=== PATIENT | male | born 1955 | race Two or more races ===

== ENCOUNTER 2018-02-12 20:24 | Inpatient (IN) | payer OTHER ==
[~2018-02-12] VITALS: Ht 170.2 cm; Wt 83.9 kg
[2018-02-13 00:46] VITALS: BP 167/87
[2018-02-13] MEDS ORDERED: Z GUARD REMEDY PASTE 57 GM TUBE TOP PRN (01:00)
[2018-02-13] MEDS ORDERED: AMLO10TA2 PO (01:09)
[2018-02-13] MEDS ORDERED: ASPI-612 PO (01:42)
[2018-02-13] MEDS ORDERED: BENZ1LOZ58 MM (01:42)
[2018-02-13] MEDS ORDERED: HYDR-4076 PO (01:42)
[2018-02-13] MEDS ORDERED: DOCU-141 PO (01:42)
[2018-02-13] MEDS ORDERED: PANT40TA2 PO (01:42)
[2018-02-13] MEDS ORDERED: MAGN400O6 PO (01:42)
[2018-02-13] MEDS ORDERED: ACET-2154 PO (01:42)
[2018-02-13] MEDS ORDERED: MAG355OR18 PO (01:42)
[2018-02-13] MEDS ORDERED: SENN-18 PO (01:42)
[2018-02-13] MEDS ORDERED: CLON0.1T PO (01:42)
[2018-02-13] MEDS ORDERED: TAMS-3 PO (01:42)
[2018-02-13] MEDS ORDERED: HYDR-3980 PO (01:42)
[2018-02-13] MEDS ORDERED: hydrALAZINE HCL 25 MG TABLET PO SCH (02:00)
[2018-02-13] MEDS ORDERED: CLONIDINE HCL 0.1 MG TABLET PO SCH (02:00)
[2018-02-13] MEDS ORDERED: SENNOSIDES 1 TABLET PO SCH (02:00)
[2018-02-13] MEDS ORDERED: MAGNESIUM HYDROXIDE 30 ML LIQUID UDC PO PRN (02:00)
[2018-02-13] MEDS ORDERED: ACETAMINOPHEN 325 MG TABLET PO SCH (02:00)
[2018-02-13] MEDS ORDERED: MAG HYDROX/AL HYDROX/SIMETH 30 ML LIQUID UDC PO PRN (02:00)
--- NOTE | 2018-02-13 04:57 | NUR ---
admitted from [facility] a 62 year old male with admitting diagnoses o S/P left total knee arthroplasty. left knee dressing clean dry and intact with suman in placed. No evidence of swelling or drainage from the site. AAOx4 CLINE's Lungs CTA. Denies any pain at this time. Voiding well. Meds reconcile and RECLAMATION SUPERVISOR Chris aware. MRSA nares swab sent to lab. Kept comfortable. Hx of HTN, GERD, CAD, and Osteoarthrits. Fall precautions maintained. Siderails up for safety. VS taken and recorded.BP 169/87 HR 94 Resp 18 Temp 98.1 97% pulse ox. Skin intact. Left knee has immobilizer on. Will monitor patient.
[2018-02-13] MEDS: HYDROCODONE/APAP 10-325 MG TABLET PO PRN ×4 (05:36→20:55)
--- NOTE | 2018-02-13 05:41 | NUR ---
slept well most of the shift. aaox4 BP 189/96 HR 100. complained of pain left knee 04/11 Hydralazine 25 mg po given and Penelope 10/325 mg 1 tab given for pain. Will monitor patient. voiding well. needs attended. kept comfortable.
--- NOTE | 2018-02-13 06:50 | NUR ---
latest BP 149/85 HR 96 No further complaints noted.
--- NOTE | 2018-02-13 07:08 | NUR ---
Nurse notes: patient received awake, alert and oriented x 4, able to make needs known. All needs were attended and anticipated. call light within reach, assessed for pain, instructed about hourly rounding and safety precautions to prevent any falls. Call light and telephone within reach. Will continue to monitor
[2018-02-13 08:00] VITALS: BP 146/83
[2018-02-13] MEDS: AMLODIPINE 10 MG TABLET PO SCH (08:55)
[2018-02-13] MEDS: TAMSULOSIN HCL 0.4 MG CAP.SR.24H PO SCH (08:56)
[2018-02-13] MEDS: DOCUSATE SODIUM 100 MG CAPSULE PO SCH ×2 (08:56→17:07)
[2018-02-13] MEDS: ASPIRIN 325 MG TABLET PO SCH ×2 (08:56→17:07)
--- NOTE | 2018-02-13 18:34 | NUR ---
End of shift report: patient alert and oriented x 4 able to make needs known remained stable throughout the shift with no acute changes noted. no SOB or distress, assessed and reassessed for pain. Medicated with pain medication as ordered PRN. All due medications were given tolerated well. at the bedside. Hourly rounding done, call light and telephone within reach at all times, bed alarm and bed brake son for safety. Will endorse accordingly to incoming shift for continuity of care.
[2018-02-13 19:21] VITALS: BP 132/84
[2018-02-13] MEDS: PANTOPRAZOLE SODIUM 40 MG TABLET.DR PO SCH (20:51)
--- NOTE | 2018-02-14 04:21 | NUR ---
The patient received lying on bed comfortably. Awake and alert x3. Able to make needs known. Ambulate with walker, one person assist. No acute distress, no SOB. His family was at bedside. Med given as ordered. Pain assessed and pain medication given. Pain reassessment was done. Call light and personal belonging within reach. Bed alarm and bed brakes on for safety precaution. Continue to monitor.
[2018-02-14] MEDS: HYDROCODONE/APAP 10-325 MG TABLET PO PRN ×5 (05:18→22:13)
[2018-02-14 06:41] VITALS: BP 144/87
--- NOTE | 2018-02-14 07:06 | NUR ---
patient alert and oriented x3. No acute distress, no SOB. No change in LOC or mentation. Remained stable throughout the shift. Med given as ordered. Pain assessed and reassessed after pain medication. Call light within reach. Bed alarm and brakes on for safety precaution. Will endorse accordingly to incoming shift for continuity of care.
[2018-02-14 07:27] LABS: CREATININE 1.2 mg/dL (0.6-1.3); POTASSIUM 3.6 mmol/L (3.5-5.1)
[2018-02-14 07:40] LABS: BASOPHILS % (AUTO) 0.5 % (0.0-2.0); EOSINOPHILS # (AUTO) 0.4 K/uL (0.0-0.7); EOSINOPHILS % (AUTO) 4.6 % (0.0-7.0); HEMATOCRIT 32.8 % (36.7-47.1); HEMOGLOBIN 11.5 g/dL (12.5-16.3); LYMPHOCYTES # (AUTO) 1.2 K/uL (20.0-40.0); LYMPHOCYTES % (AUTO) 15.2 % (20.5-51.5); MEAN CORPUSCULAR HEMOGLOBIN 29.9 uug (23.8-33.4); MEAN CORPUSCULAR HGB CONC 35 g/dL (32.5-36.3); MEAN CORPUSCULAR VOLUME 85.7 fL (73.0-96.2); MONOCYTES # (AUTO) 0.6 K/uL (2.0-10.0); MONOCYTES % (AUTO) 8.1 % (0.0-11.0); NEUTROPHILS # (AUTO) 5.6 K/uL (1.8-8.9); NEUTROPHILS % (AUTO) 71.6 % (38.5-71.5); PLATELET COUNT (AUTO) 228 K/uL (152-348); RED BLOOD CELL COUNT(AUTO) 3.82 MIL/uL (4.06-5.63); WHITE BLOOD COUNT (AUTO) 7.9 K/uL (3.6-10.2)
[2018-02-14 08:08] VITALS: BP 148/92
[2018-02-14] MEDS: DOCUSATE SODIUM 100 MG CAPSULE PO SCH ×2 (09:24→17:19)
[2018-02-14] MEDS: ASPIRIN 325 MG TABLET PO SCH ×2 (09:24→17:19)
[2018-02-14] MEDS: AMLODIPINE 10 MG TABLET PO SCH (09:24)
[2018-02-14] MEDS: TAMSULOSIN HCL 0.4 MG CAP.SR.24H PO SCH (09:24)
--- NOTE | 2018-02-14 09:50 | NUR ---
INTERDISCIPLINARY TEAM CONFERENCE
[2018-02-14 15:42] VITALS: BP 155/81
--- NOTE | 2018-02-14 18:36 | NUR ---
PATIENT RECEIVED IN BED, RESTING, AT BEDISDE. NO ACUTE DISTRESS NOTED, COMPLAINED OF PAIN ON LEFT KNEE 04/11, NORCO 10/325MG GIVEN AT 1719. PATIENT REQUESTED TO CHANGE DRESSING, DURING DRESSING CHANGE NOTED THAT BLISTER HAD DEVELOPED ON THE LEFT THIGH, AREA LEFT OPEN TO AIR, PICTURE TAKEN AND PUT IN CHART, NOTIFIED MD, WOUND CONSULT ORDERED AND CARRIED OUT. ALL NEEDS ATTENDED AND ANTICIPATED. COMFORT MEASURES PROVIDED. PER PT PATIENT CAN AMBULATE WITH WALKER WITHOUT STANDBY ASSIST. WILL CONTINUE TO MONITOR CLOSELY.
[2018-02-14 20:38] VITALS: BP 140/87
[2018-02-14] MEDS: PANTOPRAZOLE SODIUM 40 MG TABLET.DR PO SCH (20:56)
--- NOTE | 2018-02-15 00:03 | NUR ---
The patient received awake and alert x3. Able to make needs known. Can ambulate and go to the bathroom without walker,but uses walker for safety. No acute distress, no SOB. His was at bedside. Med given as ordered. Pain assessed and pain medication given. Pain reassessment was done. He has wound consult tomorrow (02/15/2018). Call light and personal belonging within reach. Bed alarm and bed brakes on for safety precaution. Continue to monitor.
[2018-02-15] MEDS: HYDROCODONE/APAP 10-325 MG TABLET PO PRN ×5 (05:34→21:09)
[2018-02-15 06:06] VITALS: BP 154/95
--- NOTE | 2018-02-15 06:52 | NUR ---
The end of shift note Patient alert and oriented x3. No acute distress, no SOB. No change in LOC or mentation. Remained stable throughout the shift. Med given as ordered. Pain assessed and reassessed after pain medication. Call light within reach. Bed alarm and brakes on for safety precaution. Will endorse accordingly to incoming shift for continuity of care.
[2018-02-15 08:26] VITALS: BP 147/83
[2018-02-15] MEDS: TAMSULOSIN HCL 0.4 MG CAP.SR.24H PO SCH ×2 (09:00→09:47)
[2018-02-15] MEDS: ASPIRIN 325 MG TABLET PO SCH ×2 (09:10→17:17)
[2018-02-15] MEDS: DOCUSATE SODIUM 100 MG CAPSULE PO SCH ×2 (09:10→17:17)
[2018-02-15] MEDS: AMLODIPINE 10 MG TABLET PO SCH (09:11)
[2018-02-15 16:06] VITALS: BP 152/97
[2018-02-15] MEDS: NEOMY/BACITRAC/POLYMI OINT 28.35 GM TUBE TOP SCH (17:10)
--- NOTE | 2018-02-15 18:19 | NUR ---
PATIENT HAS BEEN COOPERATIVE WITH CARE, PERFORMED WALKING EXERCISES WITH . PATIENT HAD SIGNIFICANT BREAKTHROUGH PAIN THROUGHOUT THE DAY REQUIRING MEDICATION. ORDERS RECEIVED FOR TRIPLE ANTIBIOTIC FOR WOUND ON LEG, AND FLOMAX DISCONTINUED BY DR. HAMILTON. CURRENTLY PATIENT IN BED, NO DISTRESS NOTED, BED IN LOW POSITION, SIDE RAILS UP X2. CALL LIGHT WITHIN REACH.
--- NOTE | 2018-02-15 20:00 | NUR ---
PATIENT RECEIVED IN BED, RESTING, AT BEDISDE. NO ACUTE DISTRESS NOTED, ALL NEEDS ATTENDED AND ANTICIPATED. COMFORT MEASURES PROVIDED. PER PT PATIENT CAN AMBULATE WITH WALKER WITHOUT STANDBY ASSIST. WILL CONTINUE TO MONITOR CLOSELY.
[2018-02-15 20:25] VITALS: BP 139/72
[2018-02-15] MEDS: PANTOPRAZOLE SODIUM 40 MG TABLET.DR PO SCH (21:09)
[2018-02-16] MEDS: HYDROCODONE/APAP 10-325 MG TABLET PO PRN ×4 (05:16→21:29)
[2018-02-16 05:39] VITALS: BP 140/86
[2018-02-16] MEDS: NEOMY/BACITRAC/POLYMI OINT 28.35 GM TUBE TOP SCH ×2 (08:11→17:38)
[2018-02-16] MEDS: ASPIRIN 325 MG TABLET PO SCH ×2 (08:11→17:38)
[2018-02-16] MEDS: DOCUSATE SODIUM 100 MG CAPSULE PO SCH ×2 (08:11→17:38)
[2018-02-16] MEDS: AMLODIPINE 10 MG TABLET PO SCH (08:13)
--- NOTE | 2018-02-16 18:44 | NUR ---
PATIENT HAS BEEN COOPERATIVE WITH CARE, INTERMITTENT COMPLAINTS OF PAIN. CURRENTLY PATIENT IS IN BED, NO DISTRESS NOTED, BED IN LOW POSITION, SIDE RAILS UP X2. CALL LIGHT WITHIN REACH.
[2018-02-16 20:08] VITALS: BP 147/66
[2018-02-16 20:13] VITALS: BP 147/66
--- NOTE | 2018-02-16 20:30 | NUR ---
PATIENT HAS BEEN COOPERATIVE WITH CARE, ALERT/ORIENTED x 4, INTERMITTENT COMPLAINTS OF PAIN. CURRENTLY PATIENT IS IN BED, NO DISTRESS NOTED, BED IN LOW POSITION, SIDE RAILS UP X2. CALL LIGHT WITHIN REACH.
[2018-02-16] MEDS: PANTOPRAZOLE SODIUM 40 MG TABLET.DR PO SCH (21:27)
[2018-02-17 05:21] VITALS: BP 157/92
[2018-02-17] MEDS: HYDROCODONE/APAP 10-325 MG TABLET PO PRN ×4 (05:21→21:23)
[2018-02-17] MEDS: ASPIRIN 325 MG TABLET PO SCH ×2 (08:27→16:41)
[2018-02-17] MEDS: AMLODIPINE 10 MG TABLET PO SCH (08:27)
[2018-02-17] MEDS: DOCUSATE SODIUM 100 MG CAPSULE PO SCH ×2 (08:27→16:41)
[2018-02-17] MEDS: NEOMY/BACITRAC/POLYMI OINT 28.35 GM TUBE TOP SCH ×2 (08:34→16:42)
[2018-02-17 08:37] VITALS: BP 162/88
[2018-02-17] MEDS ORDERED: COLCHICINE 0.6 MG TABLET PO SCH ×2 (12:00→13:00)
[2018-02-17] MEDS: IBUPROFEN 600 MG TABLET PO SCH ×2 (13:11→21:17)
--- NOTE | 2018-02-17 18:47 | NUR ---
SBAR report received this morning, board updated. Pt assessed, c/o gout to left big toe resolved with new order for medication. Raton administered per PRN orders. Pt seen by MD. Pt compliant with all medication and nursing care. Needs attended to promptly throughout this shift. All comfort and safety measures implemented. Call light within reach will continue to monitor and endorse to on coming slot shift supervisor.
[2018-02-17 19:30] VITALS: BP 143/84
--- NOTE | 2018-02-17 20:00 | NUR ---
AWAKE ALERT FAMILY AT BEDSIDE.LEFT KNEE DRESSINGS DRY AND INTACT
[2018-02-17] MEDS: PANTOPRAZOLE SODIUM 40 MG TABLET.DR PO SCH (21:17)
--- NOTE | 2018-02-17 22:00 | NUR ---
COMPLAINED OF LEFT KNEE PAIN NORCO I TAB PO GIVEN, MADE COMFORTABLE HS CARE GIVEN
[2018-02-18] MEDS: IBUPROFEN 600 MG TABLET PO SCH ×3 (06:29→20:56)
--- NOTE | 2018-02-18 06:41 | NUR ---
SLEPT GOOD,NO COMPLAINTS MADE.CONDTION UNCHANGED.
[2018-02-18 07:12] VITALS: BP 147/82
[2018-02-18] MEDS: COLCHICINE 0.6 MG TABLET PO SCH ×2 (09:12→17:19)
[2018-02-18] MEDS: ASPIRIN 325 MG TABLET PO SCH ×2 (09:12→17:19)
[2018-02-18] MEDS: AMLODIPINE 10 MG TABLET PO SCH (09:12)
[2018-02-18] MEDS: DOCUSATE SODIUM 100 MG CAPSULE PO SCH ×2 (09:12→17:19)
[2018-02-18] MEDS: HYDROCORTISONE 1% CREAM 30 GM TUBE TP SCH ×3 (09:13→17:20)
[2018-02-18] MEDS: NEOMY/BACITRAC/POLYMI OINT 28.35 GM TUBE TOP SCH ×2 (09:13→17:20)
[2018-02-18] MEDS: HYDROCODONE/APAP 10-325 MG TABLET PO PRN ×2 (09:17→20:57)
--- NOTE | 2018-02-18 10:00 | NUR ---
pt seen on rounding. pt vitals stable. applied cotisone cream on rash. applied triple antibiotic on wound. pt given pain meds. no signs of aspirations. will continue to monitor.
[2018-02-18 16:09] VITALS: BP 134/59
--- NOTE | 2018-02-18 18:04 | NUR ---
pt stable throughout the day. pt vitals stable. applied antibiotic to blisters and hydrocortisone to rash. pt states that it continues to itch. applied accordingly. pt is modified assist on transfers and walking. bp stable. will endorse to performance improvement coordinator nurse.
--- NOTE | 2018-02-18 19:30 | NUR ---
Report received. Patient AAO, able to make needs known. Family at bedside. L knee dressing dry and intact. NAD noted.
[2018-02-18] MEDS: PANTOPRAZOLE SODIUM 40 MG TABLET.DR PO SCH (20:24)
[2018-02-18 20:54] VITALS: BP 139/71
--- NOTE | 2018-02-18 20:57 | NUR ---
Ambulates to the BR by himself; gait steady. Medicated with Sartell per patient's request. L knee dressing changed. Dorothy intact; no unusual drainage noted. L leg especially knee and thigh areas are swollen. Skin taut; pedal pulses palpable. Bruise noted to L ankle/foot and a large bruise noted to inner and posterior thighs. Also noted 1 big blister and 3 small blisters to inner knee area. Skin care provided. L leg elevated on pillow. Will monitor bruising.
[2018-02-19 05:39] VITALS: BP 141/72
[2018-02-19] MEDS: IBUPROFEN 600 MG TABLET PO SCH ×3 (06:34→21:11)
--- NOTE | 2018-02-19 06:49 | NUR ---
Uneventful night. VS stable.
[2018-02-19 07:34] VITALS: BP 167/81
[2018-02-19] MEDS: COLCHICINE 0.6 MG TABLET PO SCH ×2 (08:21→16:51)
[2018-02-19] MEDS: ASPIRIN 325 MG TABLET PO SCH ×2 (08:21→16:51)
[2018-02-19] MEDS: DOCUSATE SODIUM 100 MG CAPSULE PO SCH ×2 (08:22→16:51)
[2018-02-19] MEDS: AMLODIPINE 10 MG TABLET PO SCH (08:22)
[2018-02-19] MEDS: HYDROCODONE/APAP 10-325 MG TABLET PO PRN ×2 (08:22→21:11)
[2018-02-19] MEDS: NEOMY/BACITRAC/POLYMI OINT 28.35 GM TUBE TOP SCH ×2 (08:23→16:52)
[2018-02-19] MEDS: HYDROCORTISONE 1% CREAM 30 GM TUBE TP SCH ×3 (08:23→16:52)
[2018-02-19 16:22] VITALS: BP 129/78
--- NOTE | 2018-02-19 18:58 | NUR ---
Nurse notes: patient alert and oriented x 4 able top make needs known remained stable throughout the shift with no acute changes noted. No episodes of SOB or distress. assessed and reassessed for pain, medicated with Gaston for pain as ordered PRN. all due medications were given- tolerated well. Wound assessed, wound care treatment done as ordered- tolerated well. Afebrile, no signs and symptoms of infection noted. patient able to tolerated CPM machine. hourly rounding done, call light and telephone within reach at all times, bed alarm and bed brakes on for safety. Will endorse accordingly to incoming shift for continuity of care.
[2018-02-19 20:00] VITALS: BP 139/84
--- NOTE | 2018-02-19 20:00 | NUR ---
PT ALERT AWAKE IN NO ACUTE DISTRESS. STATES PAIN TO LEFT KNEE AREA 04/11. ABLE TO MAKE NEEDS KNOWN. DENIES ANY CHEST PAIN OR SOB. NO ACTIVE BLEEDING OR DRAINAGE TO SURGICAL SITE. DRESSING INTACT AND AWARE OF ELVIA TO BE REMOVED SATURDAY. PT REQUESTED NORCO ALONG WITH ROUTINE HS MEDICATIONS. REMINDED PT TO USE CALL LIGHT FOR ASSISTANCE NEEDED. WILL CONTINUE TO MONITOR.
[2018-02-19] MEDS: PANTOPRAZOLE SODIUM 40 MG TABLET.DR PO SCH (21:10)
[2018-02-20 05:47] VITALS: BP 141/82
--- NOTE | 2018-02-20 05:47 | NUR ---
PT IN ROOM ALERT IN NO ACUTE DISTRESS AND ABLE TO MAKE NEEDS KNOWN. NO ACTIVE BLEEDING OR S/S OF INFECTION NOTED TO SURGICAL SITE. STATES MINIMAL PAIN TO LEFT KNEE BUT CONTROLLED WITH ROUTINE MOTRIN. ENCOURAGED WITH DEEP BREATHING EXERCISES AND TO REQUEST FOR ASSISTANCE WHEN NEEDED. WILL CONTINUE TO MONITOR. CALL LIGHT AT BEDSIDE.
[2018-02-20] MEDS: IBUPROFEN 600 MG TABLET PO SCH ×3 (06:11→21:05)
[2018-02-20 08:00] VITALS: BP 145/85
[2018-02-20] MEDS: COLCHICINE 0.6 MG TABLET PO SCH ×2 (08:43→16:38)
[2018-02-20] MEDS: ASPIRIN 325 MG TABLET PO SCH ×2 (08:43→16:39)
[2018-02-20] MEDS: AMLODIPINE 10 MG TABLET PO SCH (08:44)
[2018-02-20] MEDS: HYDROCODONE/APAP 10-325 MG TABLET PO PRN ×2 (08:44→21:06)
[2018-02-20] MEDS: DOCUSATE SODIUM 100 MG CAPSULE PO SCH ×2 (08:45→16:46)
[2018-02-20] MEDS: NEOMY/BACITRAC/POLYMI OINT 28.35 GM TUBE TOP SCH ×2 (08:45→16:40)
[2018-02-20] MEDS: HYDROCORTISONE 1% CREAM 30 GM TUBE TP SCH ×3 (08:45→16:40)
--- NOTE | 2018-02-20 09:04 | NUR ---
received report from mini shifter nurse , BP elevated , pt given BP meds to reduce BP , all other vitals stable , assessed wound site , suman , no signs of bleeding , rash shows improvement compared to yesterday , applied AAA ointment to prevent infection , applied steroid cream to reduce itching , check pedal pulses for circulation , pt states that throbbing pain , pt given pain meds , will rule out DVT with Doppler per md recommendation , will continue to monitor
--- NOTE | 2018-02-20 15:21 | NUR ---
Changed dressing on pt's left knee , no signs of infection ( no redness , swelling , heat ) , no bleeding or drainage , suman intact , Pt tolerated dressing change without pain or discomfort .
[2018-02-20 16:00] VITALS: BP 131/81
--- NOTE | 2018-02-20 18:16 | NUR ---
pt stable throughout the day. wound site cleaned and applied cortisone to reduce itching. pt given pain meds as requested. no signs of infection nor drainage. will endorse to retail shift leader nurse.
--- NOTE | 2018-02-20 20:00 | NUR ---
The patient received awake and alert x3. Able to make needs known. Can ambulate and go to the bathroom without walker,but uses walker for safety. No acute distress, no SOB. His son was at bedside. Med given as ordered. Pain assessed and pain medication given. Pain reassessment was done. Call light and personal belonging within reach. Bed alarm and bed brakes on for safety precaution. Continue to monitor.
[2018-02-20 20:25] VITALS: BP 133/78
[2018-02-20] MEDS: PANTOPRAZOLE SODIUM 40 MG TABLET.DR PO SCH (21:05)
[2018-02-21 05:19] VITALS: BP 133/82
[2018-02-21] MEDS: IBUPROFEN 600 MG TABLET PO SCH (05:52)
[2018-02-21 06:59] LABS: BASOPHILS # (AUTO) 0.1 K/uL (0.0-8.0); EOSINOPHILS # (AUTO) 0.7 K/uL (0.0-0.7); MONOCYTES # (AUTO) 0.6 K/uL (2.0-10.0); NEUTROPHILS # (AUTO) 4.2 K/uL (1.8-8.9); WHITE BLOOD COUNT (AUTO) 7.2 K/uL (3.6-10.2)
[2018-02-21 07:10] LABS: BILIRUBIN,TOTAL 0.5 mg/dL (0.2-1.0); CREATININE 1.2 mg/dL (0.6-1.3); MAGNESIUM 2.2 mg/dL (1.8-2.4); PHOSPHOROUS 5.1 mg/dL (2.5-4.9); POTASSIUM 3.9 mmol/L (3.5-5.1); TOTAL PROTEIN, SERUM 6.9 g/dL (6.4-8.2)
[2018-02-21 07:13] LABS: BASOPHILS % (AUTO) 0.9 % (0.0-2.0); EOSINOPHILS % (AUTO) 9.7 % (0.0-7.0); HEMATOCRIT 32.8 % (36.7-47.1); HEMOGLOBIN 11.4 g/dL (12.5-16.3); LYMPHOCYTES # (AUTO) 1.6 K/uL (20.0-40.0); LYMPHOCYTES % (AUTO) 22.6 % (20.5-51.5); MEAN CORPUSCULAR HEMOGLOBIN 29.4 uug (23.8-33.4); MEAN CORPUSCULAR HGB CONC 35 g/dL (32.5-36.3); MEAN CORPUSCULAR VOLUME 84.4 fL (73.0-96.2); MONOCYTES % (AUTO) 8.5 % (0.0-11.0); NEUTROPHILS % (AUTO) 58.3 % (38.5-71.5); RED BLOOD CELL COUNT(AUTO) 3.89 MIL/uL (4.06-5.63)
[2018-02-21 07:14] LABS: PLATELET COUNT (AUTO) 518 K/uL (152-348)
[2018-02-21 07:18] LABS: THYROID STIMULATING HORMONE 4.073 mIU/mL (0.358-3.740)
[2018-02-21 08:00] VITALS: BP 154/89
[2018-02-21] MEDS: COLCHICINE 0.6 MG TABLET PO SCH (08:24)
[2018-02-21] MEDS: DOCUSATE SODIUM 100 MG CAPSULE PO SCH ×2 (08:24→16:59)
[2018-02-21] MEDS: ASPIRIN 325 MG TABLET PO SCH ×2 (08:24→16:59)
[2018-02-21] MEDS: AMLODIPINE 10 MG TABLET PO SCH (08:25)
[2018-02-21] MEDS: HYDROCODONE/APAP 10-325 MG TABLET PO PRN ×3 (08:25→20:58)
[2018-02-21] MEDS: HYDROCORTISONE 1% CREAM 30 GM TUBE TP SCH ×3 (08:26→16:59)
[2018-02-21] MEDS: NEOMY/BACITRAC/POLYMI OINT 28.35 GM TUBE TOP SCH ×2 (08:26→17:00)
--- NOTE | 2018-02-21 09:34 | NUR ---
pt seen on rounding. bp elevated. pt given bp meds to reduce bp. pt given pain meds prior to therapy session. applied cream on legs. no signs of bleeding nor infection. will continue to monitor.
[2018-02-21] MEDS ORDERED: IBUPROFEN 800 MG TABLET PO PRN (13:30)
[2018-02-21] MEDS ORDERED: IBUPROFEN 400 MG TABLET PO PRN (13:45)
[2018-02-21 16:00] VITALS: BP 132/79
--- NOTE | 2018-02-21 16:18 | NUR ---
INTERDISCIPLINARY TEAM CONFERENCE
--- NOTE | 2018-02-21 19:00 | NUR ---
pt stable throughout the day. pt colchicine levels high. taught patients ways to reduce uric acid levels. will endorse to slot shift supervisor nurse.
[2018-02-21 19:30] VITALS: BP 157/84
--- NOTE | 2018-02-21 20:00 | NUR ---
The patient received awake and alert x4. Able to make needs known. Can ambulate and go to the bathroom without walker,but uses walker for safety. No acute distress, no SOB. Call light and personal belonging within reach. Bed alarm and bed brakes on for safety precaution. Continue to monitor.
[2018-02-21] MEDS: PANTOPRAZOLE SODIUM 40 MG TABLET.DR PO SCH (20:57)
--- NOTE | 2018-02-22 06:02 | NUR ---
The end of shift note Patient alert and oriented x3. No acute distress, no SOB. No change in LOC or mentation. Remained stable throughout the shift,watching TV and painting. Can go to the rest room with walker and independently. Med given as ordered. Pain assessed and reassessed after pain medication. Call light within reach. Bed alarm and brakes on for safety precaution. Will endorse accordingly to incoming shift for continuity of care.
[2018-02-22 08:28] VITALS: BP 154/93
[2018-02-22] MEDS: HYDROCORTISONE 1% CREAM 30 GM TUBE TP SCH ×3 (09:00→16:34)
[2018-02-22] MEDS: NEOMY/BACITRAC/POLYMI OINT 28.35 GM TUBE TOP SCH ×2 (09:00→16:34)
[2018-02-22] MEDS: DOCUSATE SODIUM 100 MG CAPSULE PO SCH ×2 (09:03→17:28)
[2018-02-22] MEDS: ASPIRIN 325 MG TABLET PO SCH ×2 (09:03→17:28)
[2018-02-22] MEDS: AMLODIPINE 10 MG TABLET PO SCH (09:05)
[2018-02-22] MEDS: HYDROCODONE/APAP 10-325 MG TABLET PO PRN ×3 (09:06→21:22)
[2018-02-22] MEDS: COLCHICINE 0.6 MG TABLET PO SCH (09:07)
[2018-02-22 15:57] VITALS: BP 117/75
--- NOTE | 2018-02-22 19:00 | NUR ---
Patient alert and oriented. vital sign stable and recorded. call light within reached.
[2018-02-22 20:16] VITALS: BP 151/86
[2018-02-22] MEDS: PANTOPRAZOLE SODIUM 40 MG TABLET.DR PO SCH (21:21)
[2018-02-23 05:00] VITALS: BP 156/96
--- NOTE | 2018-02-23 06:38 | NUR ---
PT AMBULATED WITH A WALKER, DOING WELL ,STILL SWOLLEN LEFT KNEE, NORCO PRN AND GIVEN X2 OVERNIGHT.ICE PACK PRN OVER THE KNEE, INCISION WITH ELVIA,SLEPT WELL,VSS,AFEBRILE,WILL CONTINUE TO MONITOR
--- NOTE | 2018-02-23 08:00 | NUR ---
Pt remains awake,alert,oriented.Able to ambulate with minimal assistance.Denies pain,discomfort.Plan of care was updated with patient.
[2018-02-23 08:08] VITALS: BP 150/90
[2018-02-23] MEDS: DOCUSATE SODIUM 100 MG CAPSULE PO SCH ×2 (09:15→17:27)
[2018-02-23] MEDS: ASPIRIN 325 MG TABLET PO SCH (09:15)
[2018-02-23] MEDS: COLCHICINE 0.6 MG TABLET PO SCH (09:15)
[2018-02-23] MEDS: AMLODIPINE 10 MG TABLET PO SCH (09:16)
[2018-02-23] MEDS: NEOMY/BACITRAC/POLYMI OINT 28.35 GM TUBE TOP SCH ×2 (09:16→17:28)
[2018-02-23] MEDS: HYDROCORTISONE 1% CREAM 30 GM TUBE TP SCH ×3 (09:17→17:28)
[2018-02-23] MEDS: HYDROCODONE/APAP 10-325 MG TABLET PO PRN ×3 (09:17→21:47)
[2018-02-23] MEDS ORDERED: ACETAMINOPHEN 325 MG TABLET PO PRN (15:27)
[2018-02-23] MEDS ORDERED: CLONIDINE HCL 0.1 MG TABLET PO PRN (15:30)
[2018-02-23 16:03] VITALS: BP 132/83
[2018-02-23 19:47] VITALS: BP 131/85
--- NOTE | 2018-02-23 20:00 | NUR ---
The patient received awake and alert x4, sitting on chair and watching TV. Able to make needs known. Can ambulate and go to the bathroom without walker. No acute distress, no SOB. Call light and personal belonging within reach. Bed alarm and bed brakes on for safety precaution. Continue to monitor.
[2018-02-23] MEDS: PANTOPRAZOLE SODIUM 40 MG TABLET.DR PO SCH (21:05)
[2018-02-24 05:00] VITALS: BP 156/91
--- NOTE | 2018-02-24 06:42 | NUR ---
The end of shift note Patient alert and oriented x3. No acute distress, no SOB. No change in LOC or mentation. Remained stable throughout the shift,watching TV. Can go to the rest room with walker and independently. Med given as ordered. Pain assessed and reassessed after pain medication. Call light within reach. Bed alarm and brakes on for safety precaution. Has an orthopedic appointment today. Will endorse accordingly to incoming shift for continuity of care.
[2018-02-24] MEDS: COLCHICINE 0.6 MG TABLET PO SCH (08:09)
[2018-02-24] MEDS: DOCUSATE SODIUM 100 MG CAPSULE PO SCH ×2 (08:09→16:00)
[2018-02-24] MEDS: ASPIRIN 325 MG TABLET PO SCH (08:09)
[2018-02-24] MEDS: AMLODIPINE 10 MG TABLET PO SCH (08:09)
[2018-02-24] MEDS: NEOMY/BACITRAC/POLYMI OINT 28.35 GM TUBE TOP SCH ×2 (08:10→16:01)
[2018-02-24] MEDS: HYDROCORTISONE 1% CREAM 30 GM TUBE TP SCH ×3 (08:10→17:09)
[2018-02-24 08:38] VITALS: BP 152/86
--- NOTE | 2018-02-24 15:35 | NUR ---
pt stable throughout the day. pt continues to have elevated blood pressure but stable. suman removed and and sterri strips applied. room air no changes until sterri strips fall off. apply cortisone for itching. will continue to monitor.
[2018-02-24] MEDS: HYDROCODONE/APAP 10-325 MG TABLET PO PRN (16:00)
--- NOTE | 2018-02-24 18:43 | NUR ---
pt stable throughout the day. pain meds given as requested. pt will have pain prescriptions on discharge. will endorse to assistant shift supervisor nurse.
[2018-02-24] MEDS: PANTOPRAZOLE SODIUM 40 MG TABLET.DR PO SCH (21:00)
[2018-02-25] MEDS: DOCUSATE SODIUM 100 MG CAPSULE PO SCH (08:42)
[2018-02-25] MEDS: ASPIRIN 325 MG TABLET PO SCH (08:42)
[2018-02-25] MEDS: COLCHICINE 0.6 MG TABLET PO SCH (08:42)
[2018-02-25] MEDS: AMLODIPINE 10 MG TABLET PO SCH (08:43)
[2018-02-25] MEDS: NEOMY/BACITRAC/POLYMI OINT 28.35 GM TUBE TOP SCH (08:44)
[2018-02-25] MEDS: HYDROCORTISONE 1% CREAM 30 GM TUBE TP SCH (08:44)
[2018-02-25 08:54] VITALS: BP 146/92
--- NOTE | 2018-02-25 11:27 | NUR ---
Patient discharge to home at 1125am accompanied by daughter in private vehicle in stable condition. Discharge instruction given, verbalize understanding. MD aware. prescribe medication given, faxed and received by the pharmacy. walker to be delivered at home.
== END 2018-02-25 11:25 | disposition home or self-care (01) | DRG 560 ==
LOC: SA1 23:20
PROVIDERS: ADMIT Physical Medicine & Rehabilitation Pain Medicine; ATTEND Physical Medicine & Rehabilitation Pain Medicine
DX: Z47.1 Aftercare following joint replacement surgery (principal); D68.59 Other primary thrombophilia; Z96.652 Presence of left artificial knee joint; I10 Essential (primary) hypertension; D64.9 Anemia, unspecified; M10.9 Gout, unspecified; M25.462 Effusion, left knee
CPT/HCPCS: 36415; 83735; 84100; 84443; 84550; 85025; 92523; 92526; 92610; 97110; 97112; 97116; 97165; 97530; 97535